=== PATIENT | male | born 1980 | race Caucasian/White ===

== ENCOUNTER 2019-01-03 17:16 | Emergency (ER) | payer SELFPAY ==
[~2019-01-03] VITALS: Ht 157.5 cm; Wt 63.6 kg
[2019-01-03 17:21] VITALS: Ht 157.5 cm; Wt 63.6 kg
[2019-01-03] MEDS ORDERED: HALOPERIDOL 5 MG INJ IM ONE (18:00)
--- NOTE | 2019-01-03 19:52 | ERD ---
ER Documentation Chief Complaint Chief Complaint ETOH; CALLED IN BY FRIENDS HPI This is an approximately 38-year-old gentleman who is known to this emergency department but unknown name. The patient was found behind a liquor department intoxicated. The patient is yelling and screaming at her paramedics and staff. The patient admits to drinking alcohol and smells strongly of it. Remainder of HPI is very limited. No report of fall or trauma. Remainder of HPI exquisitely limited. ROS All systems reviewed and are negative except as per history of present illness. Medications Home Meds Unable to Obtain Active Prescriptions or Reported Meds Allergies Allergies: Coded Allergies: Unknown: Unable to obtain (Unverified , 01/03/19) PMhx/Soc Medical and Surgical Hx: Unable to obtain Hx Alcohol Use: Yes Hx Substance Use: Yes Hx Tobacco Use: Yes Smoking Status: Current every day smoker FmHx Family History: No diabetes Physical Exam Vitals Vital Signs Date Temp Pulse Resp B/P (MAP) Pulse Ox O2 O2 Flow FiO2 Time Delivery Rate 01/03/19 97.6 100 22 147/103 99 17:21 (118) Physical Exam General: Disheveled, agitated, aggressive, yelling and screaming, smells of alcohol Head: Normocephalic, atraumatic. Eyes: Pupils equally reactive, EOM intact ENT: Moist mucous membranes Neck: Supple, no lymphadenopathy Respiratory: Lungs clear bilaterally, no distress Cardiovascular: RRR, no murmurs, rubs, or gallops Abdominal: Soft, non-tender, non-distended, no peritoneal signs : Deferred MSK: No edema, no unilateral swelling, 5/5 strength Neurologic: Limited exam but moving all extremities Skin: No rash Psych: Agitated Results 24 hrs Laboratory Tests Test 01/03/19 17:55 01/03/19 17:56 Ethyl Alcohol Level 473.0 mg/dl Bedside Glucose 106 mg/dL Current Medications Medications Dose Sig/Reny Start Time Status Last (Trade) Ordered Route PRN Stop Time Admin Dose Reason Admin Haloperidol 5 mg ONCE ONCE 01/03/19 DC 01/03/19 (Haldol) IM 18:00 01/03/19 18:13 18:01 Procedures/MDM EKG, MONITORS, & DIAGNOSTIC IMAGING: CT brain: No evidence of traumatic injury per radiologist read PROCEDURES: None Required LAB INTERPRETATION: * Significant alcohol elevation MEDICAL DECISION MAKING: The patient's presentation is consistent with acute alcohol intoxication Given that I cannot rule out head injury and the patient is intoxicated yelling and screaming I will obtain a CT of the brain I have a much lower clinical concern for clinically significant traumatic brain injury, meningitis, significant electrolyte disturbance. The patient's workup will include a medical screening examination as well as observation for sobriety. The patient's presentation is most consistent with acute alcohol intoxication leading to acute encephalopathy. The patient is protecting their airway. The patient has no signs or symptoms concerning for impending respiratory failure and does not require intubation at this time. The patient will require observation in the emergency room to allow for metabolization. Once the patient is able to ambulate on their own accord, navigate the community the patient can be safely discharged from the emergency room. ER COURSE: * Patient was aggressive towards nurse. He was given Haldol with improvement. No indication for restraints at this time * CT of the brain is unremarkable. The patient will be observed for sobriety * The patient continues to protect his airway. OBSERVATION: Observation Note: Indication: Alcohol Intoxication Duration: Greater than 4 hours Family history: As above The patient was observed with serial exams over the above timeframe. The patient continued to be well-appearing, and observation continued without complication. CONSULTATION: None DISPOSITION PLAN: Pending sobriety Departure Diagnosis: Primary Impression: Acute alcohol intoxication Complication of substance-induced condition: uncomplicated Qualified Codes: F10.920 - Alcohol use, unspecified with intoxication, uncomplicated Additional Impression: Chronic alcohol abuse Condition: Stable YON STONE MD Jan 03, 2019 19:52
[2019-01-04 05:24] VITALS: BP 120/70; PULSE 88; RESP 15
== END 2019-01-04 05:25 | disposition home or self-care (01) ==
LOC: E/R 17:16
DX: F10.920 Alcohol use, unspecified with intoxication, uncomplicated (principal); F17.210 Nicotine dependence, cigarettes, uncomplicated; R41.82 Altered mental status, unspecified
CPT/HCPCS: 70450; 80307; 82962; 96372; 99285; J1630